=== PATIENT | female | born 1960 ===

== ENCOUNTER 2018-07-22 14:09 | Emergency (ER) | payer BC, MEDICAID ==
[2018-07-22 14:11] VITALS: BMI 25.2
--- NOTE | 2018-07-22 14:57 | C.PDOC ---
History Of Present Illness 57 year old female with PMHx of anxiety, fibromyalgia, HTN, and HLD presents to the ED complaining of trembling of both hands, blurry vision, and congested ears since this morning. Denies any extremity weakness, numbness, or tingling, headache, fever, or chills. Reports she took Lamotrigine and Lyrica this morning. Time Seen by Provider: 07/22/18 14:19 Chief Complaint (Nursing): Anxiety History Per: Patient History/Exam Limitations: no limitations Onset/Duration Of Symptoms: Hrs Current Symptoms Are (Timing): Still Present Suicide/Self Injury Attempted (Context): None Modifying Factor(s): None Associated Symptoms: Anxiety Past Medical History Reviewed: Historical Data, Nursing Documentation, Vital Signs Vital Signs: Last Vital Signs Temp 98.5 F 07/22/18 14:28 Pulse 122 H 07/22/18 14:28 Resp 20 07/22/18 14:28 BP 171/103 H 07/22/18 14:28 Pulse Ox 95 07/22/18 14:28 - Medical History PMH: Anxiety, Depression, HTN, Hypercholesterolemia Surgical History: Cholecystectomy, Tonsillectomy - [facility] Procedures LAPAROSCOPIC CHOLECYSTECTOMY (08/10/12) Family History: States: No Known Family Hx - Social History Hx Tobacco Use: No Hx Alcohol Use: Yes Hx Substance Use: No - Immunization History Hx Tetanus Toxoid Vaccination: No Hx Influenza Vaccination: No Hx Pneumococcal Vaccination: No Review Of Systems Except As Marked, All Systems Reviewed And Found Negative. Constitutional: Negative for: Fever, Chills Eyes: Positive for: Vision Change (blurry vision) ENT: Positive for: Other (congested ear) Musculoskeletal: Positive for: Other (tremelous hands ) Neurological: Negative for: Weakness, Numbness Psych: Positive for: Anxiety Physical Exam - Physical Exam Appears: Non-toxic, No Acute Distress, Other (tremulous) Skin: Warm, Dry, No Rash, Other (flushed ) Head: Normacephalic Eye(s): bilateral: Normal Inspection Nose: Normal Oral Mucosa: Moist Neck: Supple Chest: Symmetrical Cardiovascular: Rhythm Regular, No Murmur Respiratory: Normal Breath Sounds, No Rales, No Rhonchi, No Wheezing Gastrointestinal/Abdominal: Soft, No Tenderness Neurological/Psych: Oriented x3, Normal Speech Gait: Steady ED Course And Treatment O2 Sat by Pulse Oximetry: 95 (RA) Pulse Ox Interpretation: Normal Medical Decision Making Medical Decision Making: Plan - Xanax 0.5mg PO - Glucose POC On reassessment, patient reports improvement of symptoms. States she is not longer tremulous. Notes she has a headache. Family is at bedside. Disposition Counseled Patient/Family Regarding: Diagnosis, Need For Followup, Rx Given - Disposition Disposition: HOME/ ROUTINE Disposition Time: 16:58 Condition: IMPROVED Prescriptions: Alprazolam [Xanax] 0.5 mg PO PRN PRN #4 tab PRN Reason: Anxiety Instructions: Anxiety, Adult (DC) Forms: [place] [employer] (Khmer), Gen Discharge Inst Khmer - POA Present On Arrival: None - Clinical Impression Clinical Impression: Anxiety - Scribe Statement The provider has reviewed the documentation as recorded by the Scribe Ruth Gary All medical record entries made by the Scribe were at my direction and personally dictated by me. I have reviewed the chart and agree that the record accurately reflects my personal performance of the history, physical exam, medical decision making, and the department course for this patient. I have also personally directed, reviewed, and agree with the discharge instructions and disposition.
[2018-07-22 16:17] VITALS: TEMP 98.1
[2018-07-22 17:20] VITALS: BP 110/62; PULSE 85; RESP 17; O2SAT 97
== END 2018-07-22 17:25 | disposition home or self-care (01) ==
LOC: C.ER 14:09
DX: F41.9 Anxiety disorder, unspecified (principal)